=== PATIENT | male | born 1995 | race Caucasian/White ===

== ENCOUNTER 2016-09-27 20:38 | Emergency (ER) | payer BC ==
[~2016-09-27] VITALS: Ht 193 cm; Wt 165.5 kg
[2016-09-27 20:52] VITALS: TEMP 37.1; Ht 193 cm; Wt 165.5 kg
[2016-09-27] MEDS ORDERED: IBUPROFEN 800 MG TAB PO STA (21:00)
[2016-09-27] MEDS ORDERED: LISD50CA4 PO (21:11)
--- NOTE | 2016-09-27 21:41 | DIAGNOSTIC IMAGING REPORT ---
LEFT ANKLE 3 VIEWS HISTORY: Left ankle pain. COMPARISON: None. FINDINGS: There is no fracture or dislocation. Soft tissue swelling. No radiopaque foreign bodies. IMPRESSION: No fractures. Electronically signed by: Dequan Jefferson M.D. 09/27/2016 9:39 PM Dictated Date/Time: 09/27/2016 9:38 PM
[2016-09-27 21:54] VITALS: BP 159/106; PULSE 88; O2SAT 98
--- NOTE | 2016-09-27 23:28 | EMERGENCY ROOM VISIT NOTE ---
History Report prepared by Charanibalmaz: Sari Landers Under the Supervision of: Dr. Tyrell Saavedra M.D. First contact with patient: 20:57 Chief Complaint: ANKLE PAIN Stated Complaint: SWOLLEN ANKLE, PAIN History of Present Illness The patient is a 21 year old male who presents to the Emergency Room with complaints of persistent left ankle pain that started very early this morning. He reports he was walking to his car around 0200 when he misstepped, and landed on his ankle in an "awkward" way. He states he heard a "crack or a pop" immediately after landing and rates his current discomfort as a 5/10. The patient denies ever injuring the ankle in the past. He denies any knee pain. He has tried taking Ibuprofen, but notes it has provided minimal relief. The patient denies any LOC, headache, fevers, chills, diaphoresis, visual changes, neck pain, chest pain, breathing difficulties, nausea, vomiting, abdominal pain , back pain, melena, hematochezia, urinary symptoms, numbness, weakness, lymphadenopathy, rash, or other complaints. Source of History: patient Onset: 0200 today Position: ankle (left) Symptom Intensity: 5/10 Timing: other (persistent) Modifying Factors (Relieving): ibuprofen Review of Systems See HPI for pertinent positives and negatives. A total of ten systems were reviewed and were otherwise negative. Past Medical & Surgical Medical Problems: (1) Asthma (2) Bronchitis Surgical Problems: (1) History of wisdom tooth extraction Social History Smoking Status: Current Some Day Smoker Alcohol Use: occasionally Drug Use: none Marital Status: single Housing Status: lives alone Occupation Status: [place] [employer] student Current/Historical Medications Scheduled Lisdexamfetamine Dimesylate (Vyvanse), 50 MG PO DAILY Physical Exam Vital Signs Date Time Temp Pulse Resp B/P Pulse Ox O2 Delivery O2 Flow Rate FiO2 09/27/16 21:54 88 18 159/106 98 Room Air 09/27/16 20:52 37.1 91 18 165/100 100 Physical Exam GENERAL: Awake, alert, well-appearing, in no distress HENT: Normocephalic, atraumatic. Oropharynx unremarkable. EYES: Normal conjunctiva. Sclera non-icteric. NECK: Supple. No nuchal rigidity. FROM. No JVD. RESPIRATORY: Clear to auscultation. CARDIAC: Regular rate, normal rhythm. Extremities warm and well perfused. Pulses equal. MUSCULOSKELETAL: Chest examination reveals no tenderness. The back is symmetrical on inspection without obvious abnormality. There is no CVA tenderness to palpation. No joint edema. LOWER EXTREMITIES: Calves are equal size bilaterally and non-tender. Minimal tenderness over the left Achilles, normal function, no gaps. Minimal left lateral malleolus tenderness with some swelling, moderate tenderness over the ATFO. Left hip is atraumatic, left knee is atraumatic, remainder of left foot and ankle are normal. NEURO: Normal sensorium. No sensory or motor deficits noted. SKIN: No rash or jaundice noted. Medical Decision & Procedures ER Provider Diagnostic Interpretation: This X-Ray was reviewed and interpreted by myself and the radiologist. LEFT ANKLE 3 VIEWS HISTORY: Left ankle pain. COMPARISON: None. FINDINGS: There is no fracture or dislocation. Soft tissue swelling. No radiopaque foreign bodies. IMPRESSION: No fractures. Electronically signed by: Dequan Jefferson M.D. 09/27/2016 9:39 PM Dictated Date/Time: 09/27/2016 9:38 PM Medications Administered Medications (Trade) Dose Ordered Sig/Roxann Route Start Time Stop Time Status Last Admin Dose Admin Ibuprofen (Motrin Tab) 800 mg NOW STAT PO 09/27/16 21:00 09/27/16 21:04 DC 09/27/16 21:19 800 MG ED Course 2057: The patient was evaluated in room D7. A complete history and physical exam was performed. 2100: Ibuprofen 800 mg PO. 2144: I reevaluated the patient. He is feeling much better and did not want crutches, so nursing gave him a gel ankle splint. I discussed his results and discharge instructions and he verbalized complete understanding and agreement. Medical Decision Triage Nursing notes reviewed and agree them. The patient's history was concerning for traumatic injury. Differential diagnosis: Etiologies such as ankle sprain fracture, dislocation, neurovascular compromise , soft tissue injury, as well as others were entertained. Physical examination: Consistent with an isolated right lateral ankle injury. No proximal fibula tenderness. The remainder of the right leg and rest of the patient was atraumatic. ER treatment provided: Oral Motrin Icepack Gel splint On reassessment the patient felt better. Diagnostics interpreted by me: Imaging studies: Xrays as above. The patient has an ankle sprain. By the evaluation outlined above emergent etiologies such as fracture, dislocation, neurovascular compromise, compartment syndrome, infections, as well as others were deemed relatively unlikely. The patient was informed about the findings as listed above. All questions were answered and he was pleased with the treatment. Return instructions were outlined and the patient was discharged in stable condition. Prescription management: None Referral: The patient was referred to their primary care physician in 2 to 3 days for a recheck of your current condition. The chart was completed utilizing [employer] Speech voice recognition software. Grammatical errors, random word insertions, pronoun errors, and incomplete sentences are an occasional consequence of this system due to software limitations, ambient noise, and hardware issues. Any formal questions or concerns about the content, text, or information contained within the body of this dictation should be directly addressed to the physician for clarification. Impression Primary Impression: Left ankle sprain Scribe Attestation The scribe's documentation has been prepared under my direction and personally reviewed by me in its entirety. I confirm that the note above accurately reflects all work, treatment, procedures, and medical decision making performed by me. Departure Information Dispostion Home / Self-Care Referrals No Doctor, Assigned (PCP) Patient Instructions A Signature Page, [facility] Additional Instructions Diagnosis: 1. Ankle sprain Ibuprofen(Motrin, Advil) may be used for fever or pain. Use 600mg every six hours as needed. Take with food. Avoid using more than 2400mg in a 24 hour period. Do not use 2400mg per day for more than three consecutive days without physician direction. Prolonged inappropriate use can lead to stomach upset or ulcers. Elevate the injured ankle. Ice compresses for 20 minutes at a time four times daily for 2-3 days. Use the brace as instructed. Walking as tolerated. May take 3 to 4 weeks for your ankle to return to normal. Your x-rays will be reviewed by our radiologist's and if there is any additional findings you will be notified. Follow-up with your primary care physician in 2 to 3 days for a recheck of your current condition.
== END 2016-09-27 22:15 | disposition home or self-care (01) ==
LOC: C.EDB 20:40 → C.EDD 22:15
DX: S93.402A Sprain of unspecified ligament of left ankle, initial encounter (principal); W18.40XA Slipping, tripping and stumbling without falling, unspecified, initial encounter; J45.909 Unspecified asthma, uncomplicated; F17.200 Nicotine dependence, unspecified, uncomplicated